=== PATIENT | male | born 1950 | race Caucasian/White ===

== ENCOUNTER 2018-07-27 14:32 | Emergency (ER) | payer OTHER ==
[2018-07-27] MEDS ORDERED: Lidocaine 1% 20 ML MDV ONE (14:56)
[2018-07-27] MEDS ORDERED: Adacel (T-DAP) 0.5 ML VIAL ONE (15:03)
[2018-07-27] MEDS ORDERED: Bacitracin Zinc 1 Packet ONE (15:21)
== END 2018-07-27 15:30 | disposition home or self-care (01) ==
LOC: NAV ERS 14:32
DX: S61.412A Laceration without foreign body of left hand, initial encounter (principal); E11.9 Type 2 diabetes mellitus without complications; E03.9 Hypothyroidism, unspecified; E78.5 Hyperlipidemia, unspecified; Z87.891 Personal history of nicotine dependence; Z79.4 Long term (current) use of insulin; Z79.82 Long term (current) use of aspirin; Z79.899 Other long term (current) drug therapy; W26.8XXA Contact with other sharp object(s), not elsewhere classified, initial encounter
CPT/HCPCS: 90471; 90715; J2001

== ENCOUNTER 2022-03-07 17:25 | Emergency (ER) | payer BC, MEDICARE | END 2022-03-07 18:52 | disposition home or self-care (01) | LOC: NAV ERS 17:25 | DX: S76.011A Strain of muscle, fascia and tendon of right hip, initial encounter (principal); I87.8 Other specified disorders of veins; I48.91 Unspecified atrial fibrillation; E11.9 Type 2 diabetes mellitus without complications; E03.9 Hypothyroidism, unspecified; E78.2 Mixed hyperlipidemia; Z87.891 Personal history of nicotine dependence; Z79.899 Other long term (current) drug therapy; Z79.82 Long term (current) use of aspirin; Z79.01 Long term (current) use of anticoagulants; Z79.4 Long term (current) use of insulin ==

== ENCOUNTER 2022-10-06 11:14 | Emergency (ER) | payer BC, MEDICARE ==
[2022-10-06] MEDS ORDERED: Clindamycin 150 MG CAP ONE (11:45)
== END 2022-10-06 11:50 | disposition home or self-care (01) ==
LOC: NAV ERS 11:14
DX: L03.115 Cellulitis of right lower limb (principal); L03.116 Cellulitis of left lower limb; E11.9 Type 2 diabetes mellitus without complications; I48.91 Unspecified atrial fibrillation; E03.9 Hypothyroidism, unspecified; E78.5 Hyperlipidemia, unspecified; E78.00 Pure hypercholesterolemia, unspecified; Z87.891 Personal history of nicotine dependence; Z79.4 Long term (current) use of insulin; Z79.01 Long term (current) use of anticoagulants; Z79.899 Other long term (current) drug therapy
CPT/HCPCS: 99283

== ENCOUNTER 2023-03-20 16:56 | Emergency (ER) | payer MEDICARE ==
[2023-03-20] MEDS ORDERED: Dextrose 50% Abboject 50 ML SYRINGE ONE (17:07)
[2023-03-20 17:21] LABS: #Basophils 0.1 thou/uL (0.0-0.2); #Eosinphils 0.1 thou/uL (0.0-0.7); #Lymphocytes 1.3 thou/uL (1.20-3.40); #Monocytes 0.7 thou/uL (0.11-0.59); #Neutrophils 4.3 thou/uL (1.40-6.50); %Basophils 0.9 % (0.0-1.0); %Eosinophils 1.4 % (0.0-10.0); %Lymphocytes 19.8 % (21.0-51.0); %Monocytes 10.3 % (0.0-10.0); %Neutrophils 67.5 % (42.0-75.0); Hemoglobin 13.2 g/dL (14.0-18.0); Mean Corpuscular HGB CONC 31.4 g/dL (32.0-36.0); Mean Corpuscular Hemoglobin 29.5 pg (27.0-31.0); Mean Corpuscular Volume 93.8 fl (78.0-98.0); Mean Platelet Volume 7.7 fL (7.4-10.4); Platelet Count 137 10x3/uL (130-400); RBC Distribution Width 12.6 % (11.5-14.5); Red Blood Cell (RBC) Count 4.47 mill/uL (4.70-6.10); White Blood Cell (WBC) Count 6.4 10x3/uL (4.8-10.8)
[2023-03-20 17:41] LABS: Anion Gap 15 mmol/L (10-20); BUN (Urea Nitrogen) 20 mg/dL (8.4-25.7); Calc. Creatinine Clearance 0 mL/min (70-130); Calcium 8.9 mg/dL (7.8-10.44); Carbon Dioxide 24 mmol/L (23-31); Chloride 109 mmol/L (98-107); Estimated GFR 68; Magnesium 2.1 mg/dL (1.6-2.6); Potassium 3.3 mmol/L (3.5-5.1); Sodium 145 mmol/L (136-145)
[2023-03-20 17:44] LABS: Glucose 39 mg/dL (83-110)
== END 2023-03-20 19:06 | disposition home or self-care (01) ==
LOC: NAV ERS 16:56
DX: E11.649 Type 2 diabetes mellitus with hypoglycemia without coma (principal); E03.9 Hypothyroidism, unspecified; E78.00 Pure hypercholesterolemia, unspecified; I48.91 Unspecified atrial fibrillation; Z87.891 Personal history of nicotine dependence; Z79.899 Other long term (current) drug therapy; Z79.4 Long term (current) use of insulin
CPT/HCPCS: 36416; 80048; 83735; 84484; 85025; 93005; 96374; J7999

== ENCOUNTER 2023-09-04 16:41 | Emergency (ER) | payer MEDICARE | END 2023-09-04 17:13 | disposition home or self-care (01) | LOC: NAV ERS 16:41 | DX: S80.811A Abrasion, right lower leg, initial encounter (principal); L03.115 Cellulitis of right lower limb; E11.9 Type 2 diabetes mellitus without complications; E03.9 Hypothyroidism, unspecified; E78.00 Pure hypercholesterolemia, unspecified; Z87.891 Personal history of nicotine dependence; Z79.4 Long term (current) use of insulin; Z79.899 Other long term (current) drug therapy; W26.8XXA Contact with other sharp object(s), not elsewhere classified, initial encounter | CPT/HCPCS: 99283 ==

== ENCOUNTER 2023-11-10 18:10 | Emergency (ER) | payer MEDICARE ==
[2023-11-10] MEDS ORDERED: Clindamycin 150 MG CAP ONE (18:57)
== END 2023-11-10 19:19 | disposition home or self-care (01) ==
LOC: NAV ERS 18:10
DX: L03.116 Cellulitis of left lower limb (principal); I48.91 Unspecified atrial fibrillation; E03.9 Hypothyroidism, unspecified; E11.9 Type 2 diabetes mellitus without complications; E78.00 Pure hypercholesterolemia, unspecified; Z79.01 Long term (current) use of anticoagulants; Z79.899 Other long term (current) drug therapy; Z79.890 Hormone replacement therapy; Z79.4 Long term (current) use of insulin; Z87.891 Personal history of nicotine dependence
CPT/HCPCS: 99282

== ENCOUNTER 2023-12-10 18:44 | Emergency (ER) | payer MEDICARE ==
[2023-12-10 19:59] LABS: #Basophils 0.1 thou/uL (0.0-0.2); #Eosinphils 0.1 thou/uL (0.0-0.7); #Lymphocytes 1.4 thou/uL (1.20-3.40); #Monocytes 0.6 thou/uL (0.11-0.59); #Neutrophils 2.7 thou/uL (1.40-6.50); %Basophils 1.4 % (0.0-1.0); %Eosinophils 1.3 % (0.0-10.0); %Lymphocytes 28.6 % (21.0-51.0); %Monocytes 11.7 % (0.0-10.0); %Neutrophils 56.9 % (42.0-75.0); Hemoglobin 13.3 g/dL (14.0-18.0); Mean Corpuscular HGB CONC 32.5 g/dL (32.0-36.0); Mean Corpuscular Hemoglobin 30.4 pg (27.0-31.0); Mean Corpuscular Volume 93.5 fl (78.0-98.0); Mean Platelet Volume 9.1 fL (7.4-10.4); Platelet Count 101 10x3/uL (130-400); RBC Distribution Width 12.6 % (11.5-14.5); Red Blood Cell (RBC) Count 4.39 mill/uL (4.70-6.10); White Blood Cell (WBC) Count 4.8 10x3/uL (4.8-10.8)
== END 2023-12-10 21:00 | disposition short-term general hospital (02) ==
LOC: NAV ERS 18:44
DX: S80.12XA Contusion of left lower leg, initial encounter (principal); E11.9 Type 2 diabetes mellitus without complications; E03.9 Hypothyroidism, unspecified; E78.00 Pure hypercholesterolemia, unspecified; Z87.891 Personal history of nicotine dependence; Z79.899 Other long term (current) drug therapy; Z79.4 Long term (current) use of insulin; W18.43XA Slipping, tripping and stumbling without falling due to stepping from one level to another, initial encounter
CPT/HCPCS: 85025; 85379

== ENCOUNTER 2023-12-20 22:58 | Emergency (ER) | payer MEDICARE ==
[2023-12-20] MEDS ORDERED: Acetaminophen 500 MG TAB ONE (23:43)
[2023-12-20] MEDS ORDERED: Ipratropium/Albuterol 3 ML NEB ONE (23:43)
[2023-12-21 00:01] LABS: #Lymphocytes 0.2 thou/uL (1.20-3.40); #Monocytes 0.3 thou/uL (0.11-0.59); #Neutrophils 2.1 thou/uL (1.40-6.50); %Basophils 1.1 % (0.0-1.0); %Eosinophils 0.6 % (0.0-10.0); %Lymphocytes 8.3 % (21.0-51.0); %Monocytes 10.5 % (0.0-10.0); %Neutrophils 79.4 % (42.0-75.0); Hematocrit 39.6 % (42.0-52.0); Hemoglobin 13.2 g/dL (14.0-18.0); Mean Corpuscular HGB CONC 33.3 g/dL (32.0-36.0); Mean Corpuscular Hemoglobin 30.6 pg (27.0-31.0); Mean Corpuscular Volume 91.7 fl (78.0-98.0); Mean Platelet Volume 8.4 fL (7.4-10.4); Platelet Count 91 10x3/uL (130-400); RBC Distribution Width 12.2 % (11.5-14.5); Red Blood Cell (RBC) Count 4.32 mill/uL (4.70-6.10); White Blood Cell (WBC) Count 2.7 10x3/uL (4.8-10.8)
[2023-12-21 00:17] LABS: ALT (SGPT) 30 U/L (8-55); AST (SGOT) 39 U/L (5-34); Albumin 3.8 g/dL (3.4-4.8); Alkaline Phosphatase 119 U/L (40-110); Anion Gap 12 mmol/L (10-20); BUN (Urea Nitrogen) 19 mg/dL (8.4-25.7); Calcium 8.5 mg/dL (7.8-10.44); Carbon Dioxide 24 mmol/L (23-31); Chloride 104 mmol/L (98-107); Glucose 145 mg/dL (83-110); Potassium 4.4 mmol/L (3.5-5.1); Sodium 136 mmol/L (136-145)
[2023-12-21] MEDS ORDERED: cefTRIAXone (ROCEPHIN) 2 GM VIAL ONE (00:24)
[2023-12-21] MEDS ORDERED: Benzonatate 100 MG CAP ONE ×2 (00:24→00:26)
[2023-12-21 00:32] LABS: Bilirubin Negative (Negative); Blood, Urine Small (Negative); Clarity Clear (Clear); Glucose, Urine (Dipstick) Negative (Negative); Ketone, Urine 15 mg/dL (Negative); Leukocyte Negative (Negative); Nitrite Negative (Negative); Protein, Urine (Dipstick) 100 mg/dL (Neg-Trace); Urobilinogen 0.2 mg/dL (Less than 2); pH, Urine 5.5 (5.0-9.0)
[2023-12-21 00:37] LABS: Bacteria/HPF None Seen HPF (None Seen); CAUTI Indications for Culture Fever or rigors; Mucous/LPF Rare LPF (<2+); RBC/HPF None Seen HPF (0-3); Squamous Epithelial 0-3 HPF (0-3); WBC/HPF 0-3 HPF (0-3)
[2023-12-21 00:38] LABS: Urine Culture Reflex No No
[2023-12-21 01:00] LABS: SARS-CoV-2 NAA Rapid Test Not Detected (NotDetected)
[2023-12-21 01:01] LABS: Calc. Creatinine Clearance 0 mL/min (70-130); Estimated GFR 61
[2023-12-21] MEDS ORDERED: Sodium Chloride 0.9% 100 ML ONE (01:59)
[2023-12-21] MEDS ORDERED: Cefepime 2 GM VIAL ONE (01:59)
[2023-12-21] MEDS ORDERED: Naproxen 500 MG TAB ONE (01:59)
[2023-12-21] MEDS ORDERED: Azithromycin 500 MG VIAL ONE (02:16)
[2023-12-21] MEDS ORDERED: Ipratropium/Albuterol 3 ML NEB NEB PRN (06:04)
[2023-12-21] MEDS ORDERED: Ondansetron ODT 4 MG TAB SL PRN (06:15)
[2023-12-21] MEDS ORDERED: Acetaminophen 325 MG TAB PO PRN (06:15)
[2023-12-21] MEDS ORDERED: Ondansetron PF 4 MG/2 ML Vial IVP PRN (06:15)
[2023-12-21] MEDS ORDERED: Iopamidol 370 76% 100 ML VIAL ONE (09:00)
[2023-12-21] MEDS ORDERED: Benzonatate 100 MG CAP PO SCH (09:00)
[2023-12-21] MEDS ORDERED: guaiFENesin ER 600 MG TAB PO SCH (09:00)
== END 2023-12-21 05:00 | disposition critical access hospital (66) ==
LOC: NAV ERS 22:58
DX: J18.9 Pneumonia, unspecified organism (principal); I87.2 Venous insufficiency (chronic) (peripheral); I48.91 Unspecified atrial fibrillation; E78.00 Pure hypercholesterolemia, unspecified; Z87.891 Personal history of nicotine dependence; E03.9 Hypothyroidism, unspecified; Z79.01 Long term (current) use of anticoagulants; Z79.4 Long term (current) use of insulin; Z79.899 Other long term (current) drug therapy
CPT/HCPCS: 71045; 71275; 80053; 81001; 83605; 85025; 85379; 87040; 87804; 94640; 94760; 96361; 96365; 96367; J0456; J0692; J0696; J3490; J7620; Q9967; U0002

== ENCOUNTER 2023-12-21 04:54 | Observation (INO) | payer MEDICARE ==
[2023-12-21 05:10] VITALS: BMI 36.3
[2023-12-21] MEDS ORDERED: Calcium Carbonate 500 MG ChewTAB PO PRN (07:24)
[2023-12-21] MEDS ORDERED: Albuterol 200 PUFF (6.7GM INHALER) INH PRN (07:51)
[2023-12-21] MEDS: cefTRIAXone\\ROCEPHIN 1 GM in Sodium Chloride 0.9% 100 ML IVPB SCH (08:39)
[2023-12-21] MEDS: Flecainide 50 MG TAB PO SCH (08:40)
[2023-12-21] MEDS: Acetaminophen 325 MG TAB PO PRN (08:40)
[2023-12-21] MEDS: Hydrochlorothiazide 25 MG TAB PO SCH (08:41)
[2023-12-21] MEDS: Levothyroxine Sodium 100 MCG TAB PO SCH (08:42)
[2023-12-21] MEDS: Lisinopril 20 MG TAB PO SCH (08:42)
[2023-12-21] MEDS: Doxycycline 100 MG CAP PO SCH (08:43)
[2023-12-21] MEDS: Furosemide 20 MG TAB PO SCH (08:43)
[2023-12-21] MEDS: predniSONE 20 MG TAB PO SCH (08:43)
[2023-12-21] MEDS ORDERED: Non-Formulary Item 1 EACH (Lisinopril [Lisinopril] 40 MG Tablet) PO SCH (09:00)
[2023-12-21] MEDS ORDERED: Non-Formulary Item 1 EACH (Hydrochlorothiazide [Hydrochlorothiazide] 12.5 MG Capsule) PO SCH (09:00)
[2023-12-21] MEDS ORDERED: Non-Formulary Item 1 EACH (Flecainide Acetate [Flecainide Acetate] 100 MG Tablet) PO SCH (09:00)
[2023-12-21] MEDS ORDERED: Glucagon 1 MG/ML KIT IM PRN (10:40)
[2023-12-21] MEDS ORDERED: Dextrose 50% Abboject 50 ML SYRINGE SLOW IVP PRN (10:40)
[2023-12-21] MEDS: Benzonatate 100 MG CAP PO PRN (15:53)
[2023-12-21] MEDS ORDERED: Non-Formulary Item 1 EACH (Rivaroxaban [Xarelto] 20 MG Tablet) PO SCH (21:00)
[2023-12-21] MEDS ORDERED: Non-Formulary Item 1 EACH (Rosuvastatin [Crestor] 20 MG Tab) PO SCH (21:00)
[2023-12-21] MEDS: Rosuvastatin 10 MG TAB PO SCH (21:37)
[2023-12-21] MEDS: Rivaroxaban 10 MG TAB PO SCH (21:39)
[2023-12-22 07:03] LABS: Anion Gap 13 mmol/L (10-20); BUN (Urea Nitrogen) 20 mg/dL (8.4-25.7); Calc. Creatinine Clearance 115 mL/min (70-130); Calcium 8.2 mg/dL (7.8-10.44); Carbon Dioxide 23 mmol/L (23-31); Chloride 104 mmol/L (98-107); Estimated GFR 66; Glucose 165 mg/dL (83-110); Potassium 3.8 mmol/L (3.5-5.1); Sodium 136 mmol/L (136-145)
[2023-12-22 07:41] LABS: #Lymphocytes 0.7 thou/uL (1.20-3.40); #Monocytes 0.4 thou/uL (0.11-0.59); #Neutrophils 2.1 thou/uL (1.40-6.50); %Basophils 0.8 % (0.0-1.0); %Eosinophils 0.3 % (0.0-10.0); %Lymphocytes 20.7 % (21.0-51.0); %Monocytes 12.5 % (0.0-10.0); %Neutrophils 65.6 % (42.0-75.0); Hematocrit 35.4 % (42.0-52.0); Hemoglobin 11.6 g/dL (14.0-18.0); Mean Corpuscular HGB CONC 32.7 g/dL (32.0-36.0); Mean Corpuscular Hemoglobin 30.4 pg (27.0-31.0); Mean Corpuscular Volume 92.8 fl (78.0-98.0); Mean Platelet Volume 7.8 fL (7.4-10.4); Platelet Count 91 10x3/uL (130-400); RBC Distribution Width 12.7 % (11.5-14.5); Red Blood Cell (RBC) Count 3.81 mill/uL (4.70-6.10); White Blood Cell (WBC) Count 3.2 10x3/uL (4.8-10.8)
[2023-12-22 07:44] VITALS: TEMP 97.7
[2023-12-22 08:53] VITALS: BP 126/69
[2023-12-24] MEDS ORDERED: FLU VACC QS2023(65UP)/MF59C/PF 60 MCG/0.5 ML SYRINGE IM ONE (05:30)
== END 2023-12-22 11:26 | disposition home or self-care (01) ==
LOC: NAV ACUTE 04:54 → INTOOBSV 04:54
PROVIDERS: ADMIT Student in an Organized Health Care Education/Training Program; ATTEND Family Medicine
DX: J18.9 Pneumonia, unspecified organism (principal); E11.9 Type 2 diabetes mellitus without complications; I10 Essential (primary) hypertension; E03.9 Hypothyroidism, unspecified; I25.10 Atherosclerotic heart disease of native coronary artery without angina pectoris; I48.91 Unspecified atrial fibrillation; E78.5 Hyperlipidemia, unspecified; D69.6 Thrombocytopenia, unspecified; Z79.899 Other long term (current) drug therapy; Z79.01 Long term (current) use of anticoagulants; Z90.49 Acquired absence of other specified parts of digestive tract; Z90.89 Acquired absence of other organs; Z88.8 Allergy status to other drugs, medicaments and biological substances
CPT/HCPCS: 36415; 36416; 80048; 84145; 85025; 87633; 87798; 96365; 96376; G0378; J0696; J3490; J7512

== ENCOUNTER 2025-07-03 11:27 | Emergency (ER) | payer OTHER | END 2025-07-03 11:57 | disposition home or self-care (01) | LOC: NAV ERS 11:27 | DX: U07.1 COVID-19 (principal); I48.91 Unspecified atrial fibrillation; E11.9 Type 2 diabetes mellitus without complications; E78.00 Pure hypercholesterolemia, unspecified; Z87.891 Personal history of nicotine dependence; Z79.01 Long term (current) use of anticoagulants; Z79.4 Long term (current) use of insulin; Z79.899 Other long term (current) drug therapy | CPT/HCPCS: 99283 ==